=== PATIENT | female | born 1935 | race Caucasian/White ===

== ENCOUNTER → 2016-08-30 | Outpatient (CLI) | payer MEDICARE, OTHER ==
[~2016-08-30] MED LIST: ASPIRIN1 GM PO; ASPIRIN81 M1 PO; CELEBREX100 MG PO; CRESTOR PO; FLEXERIL PO; FOSAMAX70 MG PO; KEFLEX250 M1 PO; LORTAB 7.5-5001 TAB PO; METOPROLOL TAR25 MG PO; MULTI-DAY VITAM1 TAB PO; PRINIVIL40 MG PO; REFRESH DRY EYE15 ML OP; SYSTANE 0.3-0.415 ML
--- NOTE | ~2016-08-30 | CR63 ---
[facility] A Service of [facility] & [facility] / [facility] RADIOLOGY TEXT RESULTS PATIENT: EDD ORTA LOCATION: [facility] : 37 UNIT #: [id number] AGE: [address]: Lucila Howard MD SEX: F ORDER DR: [id number] [facility] [address] [place], [place] [address] [id number] O MR#: [id number] Acc #: [id number] NAME: EDD ORTA : 1935 SEX: F STUDY DATE/TIME: 08/30/2016 10:51 UNIT: [facility] ROOM: STUDY DESCRIPTION: CR Chest 2 View Attending Physician: Lucila Howard M.D. Referring Physician: Lucila Howard M.D. Ordering Physician: Lucila Howard M.D. Primary Care Physician: Lucila Howard M.D. MEDICAL IMAGING REPORT This report is preliminary unless electronic signature is present EXAM PA and lateral chest 08/30/2016 HISTORY Cough and shortness of air for 6 weeks. FINDINGS 2 views of the chest demonstrate the cardiac size and pulmonary vascularity are normal. Partly calcified mitral annulus. Mild right lower thoracic curve and left thoracolumbar junction curve. Surgical clips in the right axilla. Mild hypertrophic spurring upper and lower thoracic spine. IMPRESSION No acute findings. Dictated by... Michael Whitley M.D. THIS IS AN ELECTRONICALLY VERIFIED REPORT Michael Whitley M.D. at 08/30/2016 11:02 PM Joe TD: 08/30/2016 17:43 JOB #: [id number] MEDICAL IMAGING REPORT Page 1 of 1 COPY
--- NOTE | ~2016-08-30 | MY11 ---
[facility] A Service of [facility] & [facility] RADIOLOGY TEXT RESULTS PATIENT: EDD ORTA LOCATION: [facility] : 37 UNIT #: [id number] AGE: [address]: Lucila Howard MD SEX: F ORDER DR: [id number] [facility] [address] [place], [place] [address] [id number] O MR#: [id number] Acc #: [id number] NAME: EDD ORTA : 1935 SEX: F STUDY DATE/TIME: 08/30/2016 12:18 UNIT: [facility] ROOM: STUDY DESCRIPTION: MY Mammogram Screening Dig Clark Attending Physician: Lucila Howard M.D. Referring Physician: Lucila Howard M.D. Ordering Physician: Lucila Howard M.D. Primary Care Physician: Lucila Howard M.D. MEDICAL IMAGING REPORT This report is preliminary unless electronic signature is present EXAM Digital screening mammogram, 08/30/2016 HISTORY 80-year-old woman status post right lumpectomy. Positive family history, sister. Annual screening. COMPARISON Mammograms date to 06/23/2005 with most recent 09/15/2015. FINDINGS Digital imaging of each breast was completed utilizing screening protocol. Review includes FDA-approved CAD device. The breast parenchyma is predominantly fatty replaced and stable. I see no interval occurring mass. There are no suspicious microcalcifications and no suspicious architectural deformity. Post lumpectomy findings right breast are stable. IMPRESSION Negative mammogram. Stable post lumpectomy findings right breast. Annual screening recommended. Patients over the age of 40 are entered into a reminder system with target due date for the next mammogram. A result letter will also be sent to the patient. BIRADS: 1 Negative Dictated by... Elvis Giles M.D. THIS IS AN ELECTRONICALLY VERIFIED REPORT Elvis Giles M.D. at 08/30/2016 3:32 PM PETTY/guero [facility] A Service of [facility] & [facility] RADIOLOGY TEXT RESULTS PAT[facility]: [id number] 37 UNIT #: [id number] AGE: [address]: Lucila Howard MD SEX: F ORDER DR: TD: 08/30/2016 14:59 JOB #: [id number] MEDICAL IMAGING REPORT Page 1 of 1 COPY
== END | disposition home or self-care (01) ==
LOC: CRAD 10:32
DX: Z12.31 Encounter for screening mammogram for malignant neoplasm of breast (principal); R05 Cough; Z80.3 Family history of malignant neoplasm of breast; Z98.890 Other specified postprocedural states
CPT/HCPCS: 71020; G0202